=== PATIENT | male | born 1995 | race Hispanic/Latino ===

== ENCOUNTER 2019-04-07 10:41 | Emergency (ER) | payer SELFPAY ==
[2019-04-07 12:16] VITALS: BP 112/72
--- NOTE | 2019-04-07 12:16 | Event Note ---
ED Screening Note ED Screening Note: states yesterday began having cough/cold symptoms states today having N/V/D unable to tolerate PO intake no fever +sick contact PMHx asthma, ADHD no allergies to meds non smoker non drinker no drug use This initial assessment/diagnostic orders/clinical plan/treatment(s) is/are subject to change based on patients health status, clinical progression and re- assessment by fellow clinical providers in the ED. Further treatment and workup at subsequent clinical providers discretion. Patient/guardian urged not to elope from the ED as their condition may be serious if not clinically assessed and managed. Initial orders include: labs
[2019-04-07 14:13] LABS: Basophils % (Auto) 0.5 % (0.0-1.8); Eosinophils % (Auto) 0.1 % (0.0-4.3); Hematocrit 46.3 % (35.5-45.6); Hemoglobin 15.6 gm/dl (11.8-15.2); Lymphocytes # (Auto) 0.6 K/mm3 (1.2-5.4); Mean Corpuscular HGB Conc 34 % (32-34); Mean Corpuscular Volume 86 fl (84-94); Monocytes # (Auto) 0.3 K/mm3 (0.0-0.8); Monocytes % (Auto) 3.6 % (0.0-7.3); Platelet Count 277 K/mm3 (140-440); Red Blood Count 5.38 M/mm3 (3.65-5.03); Red Cell Distribution Width 12.8 % (13.2-15.2)
[2019-04-07 14:37] LABS: Alanine Aminotransferase 25 units/L (7-56); Albumin 4.8 g/dL (3.9-5); BUN/Creatinine Ratio 10; Blood Urea Nitrogen 7 mg/dL (9-20); Calcium 9.8 mg/dL (8.4-10.2); Hemolysis Index 16
[2019-04-07] MEDS ORDERED: ONDANSETRON 4 MG ODT TAB PO ONE (15:21)
[2019-04-07] MEDS ORDERED: SODIUM CHLORIDE 0.9% 1000 ML 1,000 ML IV ONE (15:22)
[2019-04-07] MEDS ORDERED: ONDANSETRON 4 MG/2 ML INJ IV ONE (15:23)
--- NOTE | 2019-04-07 15:25 | Emergency Department Report ---
Vomiting/Diarrhea - HPI Chief Complaint: Nausea/Vomiting/Diarrhea Stated Complaint: VOMITING Time Seen by Provider: 04/07/19 12:15 Duration: 1 Day Severity: moderate Nausea/Vomiting Severity: Moderate Diarrhea Severity: Mild Pain Severity: None Symptoms: Yes Watery Diarrhea, Yes Able to Tolerate Fluids, Yes Family w/ Si milar Symptoms, No Bloody diarrhea, No Fever, No Recent Unusual Foods, No Recent Untreated Water, No Recent use of Antibiotics, No Contacts w/ Similar Symptoms, No Rash, No Hematuria, No Recent URI Symptoms Other History: This is a 23-year-old male who presents to the emergency room with nausea, vomiting, and diarrhea last night. Past medical history of asthma and ADHD. Patient reports symptoms started out as a cough and congestion on yesterday. States everyone in his home have similar symptoms. Taking cold and flu medication with minimal improvement in symptoms. ED Review of Systems ROS: Stated complaint: VOMITING Other details as noted in HPI Constitutional: denies: chills, fever ENT: congestion. denies: ear pain, throat pain Respiratory: cough. denies: shortness of breath, wheezing Cardiovascular: denies: chest pain, palpitations Gastrointestinal: nausea, vomiting, diarrhea. denies: abdominal pain, hematemesis, melena, hematochezia Genitourinary: as per HPI Musculoskeletal: denies: back pain, joint swelling, arthralgia Skin: denies: rash, lesions Neurological: denies: headache, weakness, paresthesias Psychiatric: denies: anxiety, depression ED Past Medical Hx - Past Medical History Hx Asthma: Yes - Surgical History Past Surgical History?: No - Social History Smoking Status: Never Smoker Substance Use Type: None - Medications Home Medications: Home Medications Medication Instructions Recorded Confirmed Last Taken Type Loperamide HCl [Imodium A-D] 2 mg PO DAILY PRN #14 capsule 04/07/19 Unknown Rx Ondansetron [Zofran Odt] 4 mg PO Q8HR PRN #15 tab.rapdis 04/07/19 Unknown Rx Vomiting Diarrhea Exam - Exam General: Vital signs noted. No distress. Alert and acting appropriately. HEENT: Yes Pharyngeal Erythema (erythematous posterior pharynx, uvula midline), Yes Moist Mucous Membranes, Yes Rhinorrhea (turbinates congested with clear discharge), No Pharyngeal Exudates, No Conjuctival Injection, No Frontal Tenderness, No Maxillary Tenderness Neck: No Adenopathy, No Rigidity Lungs: Yes Clear Lung Sounds, Yes Good Air Exchange, No Wheezes, No Stridor, No Cough, No Nasal Flaring, No Retractions, No Use of Accessory Muscles Heart exam: Regular: Yes, Murmur: No, Tachycardia: No Abdomen: Tenderness: No, Peritoneal Signs: No, Distention: No, Hyperactive Bowel sounds: No Skin exam: Rash: No, Edema: No, Normal turgor: Yes Neurologic: Alert and oriented, no deficits. Musculoskeletal: Unremarkable. ED Course Vital Signs 04/07/19 12:06 Temperature 98.7 F Pulse Rate 116 H Respiratory 20 Rate Blood Pressure 112/72 O2 Sat by Pulse 99 Oximetry Vital Signs 04/07/19 04/07/19 12:06 17:13 Temperature 98.7 F Pulse Rate 116 H 97 H Respiratory 20 18 Rate Blood Pressure 112/72 O2 Sat by Pulse 99 97 Oximetry ED Medical Decision Making - Lab Data Result diagrams: 04/07/19 13:58 04/07/19 13:58 Lab Results 04/07/19 04/07/19 Range/Units 13:58 13:58 WBC 8.0 (4.5-11.0) K/mm3 RBC 5.38 H (3.65-5.03) M/mm3 Hgb 15.6 H (11.8-15.2) gm/dl Hct 46.3 H (35.5-45.6) % MCV 86 (84-94) fl MCH 29 (28-32) pg MCHC 34 (32-34) % RDW 12.8 L (13.2-15.2) % Plt Count 277 (140-440) K/mm3 Lymph % (Auto) 8.0 L (13.4-35.0) % [facility] % (Auto) 3.6 (0.0-7.3) % Eos % (Auto) 0.1 (0.0-4.3) % Baso % (Auto) 0.5 (0.0-1.8) % Lymph # 0.6 L (1.2-5.4) K/mm3 [facility] # 0.3 (0.0-0.8) K/mm3 Eos # 0.0 (0.0-0.4) K/mm3 Baso # 0.0 (0.0-0.1) K/mm3 Seg Neutrophils % 87.8 H (40.0-70.0) % Seg Neutrophils # 7.0 (1.8-7.7) K/mm3 Sodium 138 (137-145) mmol/L Potassium 4.1 (3.6-5.0) mmol/L Chloride 99.0 (98-107) mmol/L Carbon Dioxide 24 (22-30) mmol/L Anion Gap 19 mmol/L BUN 7 L (9-20) mg/dL Creatinine 0.7 L (0.8-1.5) mg/dL Estimated GFR > 60 ml/min BUN/Creatinine Ratio 10 % Glucose 100 (75-100) mg/dL Calcium 9.8 (8.4-10.2) mg/dL Total Bilirubin 1.00 (0.1-1.2) mg/dL AST 22 (5-40) units/L ALT 25 (7-56) units/L Alkaline Phosphatase 67 (35-129) units/L Total Protein 7.9 (6.3-8.2) g/dL Albumin 4.8 (3.9-5) g/dL Albumin/Globulin Ratio 1.5 % - Medical Decision Making Patient is overall well appearing and in no acute distress. VSS. Labs obtained. Given History and Exam there does not appear to be an emergent cause of the symptoms such as small bowel obstruction, coronary syndrome, bowel ischemia, DKA, pancreatitis, appendicitis, other acute abdomen or other emergent problem. Given 1 liter bolus of normal saline and anti-emetics. After treatment, the patient is feeling much better, tolerating PO fluids, and shows no signs of dehydration. Start Zofran and Imodium. Discharge home with prompt primary care physician follow up in the next 48 hours. Strict return precautions discussed. Critical care attestation.: If time is entered above; I have spent that time in minutes in the direct care of this critically ill patient, excluding procedure time. ED Disposition Clinical Impression: Nausea, vomiting and diarrhea, Gastroenteritis Disposition: DC-01 TO HOME OR SELFCARE Is pt being admited?: No Condition: Stable Instructions: Acute Nausea and Vomiting (ED) Additional Instructions: Frequent hand washing is important to reduce spread. Prompt disinfection of contaminated surfaces with household chlorine bleach- based development technician and washing of soiled clothing and bedding should be advised. If food or water is thought to be contaminated, it should be avoided. Increase fluid intake. Drinks high in sugars such as carbonated soft drinks, fruit juice, and highly sugared liquids should be avoided. Prescriptions: Loperamide HCl [Imodium A-D] 2 mg PO DAILY PRN #14 capsule PRN Reason: Diarrhea Ondansetron [Zofran Odt] 4 mg PO Q8HR PRN #15 tab.rapdis PRN Reason: Nausea And Vomiting Referrals: LYNDA ORNELAS MD [Staff Physician] - 3-5 Days HAI MCNEILL MD [Staff Physician] - 3-5 Days Forms: Work/School Release Form(ED) Time of Disposition: 15:31
== END 2019-04-07 17:13 | disposition home or self-care (01) ==
LOC: ED 10:41
DX: K52.9 Noninfective gastroenteritis and colitis, unspecified (principal); J45.909 Unspecified asthma, uncomplicated; F90.9 Attention-deficit hyperactivity disorder, unspecified type; Z79.899 Other long term (current) drug therapy
CPT/HCPCS: 36415; 80053; 85025; 96361; 96374; 99283; J2405; J7030

== ENCOUNTER 2020-01-03 22:31 | Emergency (ER) | payer SELFPAY ==
[2020-01-03 23:20] VITALS: BP 120/77
[2020-01-04] MEDS ORDERED: LIDOCAINE-MPF (1%) 10 MG/1 ML VIAL 5 ML INFILTRATI ONE (04:46)
[2020-01-04] MEDS ORDERED: IBUPROFEN 600 MG TAB PO ONE (04:46)
--- NOTE | 2020-01-04 06:39 | Emergency Department Report ---
ED Laceration HPI - HPI Chief Complaint: Laceration/Recheck/Suture Stated Complaint: LACERATION TO MIDDLE FINGER LEFT HAND Occurred When: Today Location: Upper Extremity (left middle finger laceration) Severity: severe Tetanus Status: Up to Date Laceration Symptoms: Yes Pain (distal left middle finger due to bleeding laceration), No Foreign Body Sensation, No Numbness, No Weakness Other History: Patient is a 24-year-old white male with past medical history of asthma who presents to the ED with complaint of acute onset persistent painful bleeding distal left middle finger laceration after he accidentally 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 Patient states that the bleeding is well controlled at this time of the pain is persistent and worse. Patient states that he is up-to-date with all his tetanus vaccinations. Patient denies numbness and tingling or weakness of left middle finger left hand, fever, chills, nausea, vomiting, syncope or dizziness. ED Review of Systems ROS: Stated complaint: LACERATION TO MIDDLE FINGER LEFT HAND Other details as noted in HPI Constitutional: denies: chills, fever Eyes: denies: eye pain, eye discharge, vision change ENT: denies: ear pain, throat pain Respiratory: denies: cough, shortness of breath, wheezing Cardiovascular: denies: chest pain, palpitations Endocrine: no symptoms reported Gastrointestinal: denies: abdominal pain, nausea, diarrhea Genitourinary: denies: urgency, dysuria Musculoskeletal: arthralgia (Distal left middle finger pain with bleeding laceration). denies: back pain, joint swelling Skin: other (Bleeding distal left middle finger laceration with pain). denies: rash, lesions Neurological: denies: headache, weakness, paresthesias Psychiatric: denies: anxiety, depression Hematological/Lymphatic: denies: easy bleeding, easy bruising ED Past Medical Hx - Past Medical History Previous Medical History?: Yes Hx Asthma: Yes Additional medical history: ADHD - Social History Smoking Status: Never Smoker Substance Use Type: Alcohol - Medications Home Medications: Home Medications Medication Instructions Recorded Confirmed Last Taken Type Loperamide HCl [Imodium A-D] 2 mg PO DAILY PRN #14 capsule 04/07/19 Unknown Rx Ondansetron [Zofran Odt] 4 mg PO Q8HR PRN #15 tab.rapdis 04/07/19 Unknown Rx Famotidine [Pepcid] 40 mg PO DAILY #14 tablet 10/07/19 Unknown Rx Mometasone Furoate [Elocon] 1 applicatio TP QDAY #45 cream..g. 10/07/19 Unknown Rx hydrOXYzine HCL [Atarax] 25 mg PO Q6HR PRN #20 tablet 10/07/19 Unknown Rx predniSONE [Deltasone] 50 mg PO QDAY #5 tab 10/07/19 Unknown Rx Ibuprofen [Motrin] 600 mg PO Q8H PRN #24 tablet 01/04/20 Unknown Rx cephALEXin [Keflex] 500 mg PO Q12HR #20 cap 01/04/20 Unknown Rx Laceration Physical Exam - Exam General: Vital signs noted. No distress. Alert and acting appropriately. Wound Length (cm): 2 Laceration Location: Upper Extremity (Palpable moderate tenderness on distal left middle finger due to a 2 cm laceration) Full Body Front + Back: 1 - Distal left middle finger 2 cm laceration Laceration Exam: Yes Normal Distal CMS, No Foreign Body, No Exposed Tendon, Vessel, or Nerve, No Tendon Injury ED Course Vital Signs 01/03/20 23:15 Temperature 98.7 F Pulse Rate 97 H Respiratory 16 Rate Blood Pressure 120/77 O2 Sat by Pulse 94 Oximetry - Laceration /Wound Repair Left Distal Finger Wound Location: upper extremity (Distal left middle finger laceration) Wound Length (cm): 2 Wound's Depth, Shape: linear Wound Explored: contaminated Irrigated w/ Saline (ccs): 100 Betadine Prep?: Yes Anesthesia: 1% Lidocaine Volume Anesthetic (ccs): 4 Wound Debrided: extensive Wound Repaired With: sutures Suture Size/Type: 4:0, proline Number of Sutures: 6 Layer Closure?: No Sterile Dressing Applied?: Yes Progress: The distal left middle finger laceration was cleaned thoroughly and 1% lidocaine solution used for local anesthesia. When anesthesia was fully achieved, the distal left middle finger laceration was sutured per protocol. Patient tolerated the procedure well. The wound was then dressed appropriately and the patient was discharged home on pain medication and prophylactic antibiotics. Patient was advised return to the ED immediately if symptoms get worse, otherwise follow-up with his primary care physician in 7 to 10 days for reevaluation. Patient was advised to return to the ED or to his primary care physician in 12 to 14 days for suture removal. 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 Patient states that the bleeding is well controlled at this time of the pain is persistent and worse. Patient states that he is up-to-date with all his tetanus vaccinations. In the ED, patient is alert and oriented x3 and is not in distress. Patient was treated for pain in the ED and the distal left middle finger laceration was sutured per protocol. Patient tolerated the procedure well. The wound was then dressed appropriately and the patient was discharged home on pain medication and prophylactic antibiotics. Patient was advised to return to the ED immediately if symptoms get worse, otherwise follow-up with his primary care physician in 7 to 10 days for reevaluation. Patient was advised to return to the ED or to his primary care physician for suture removal in 12 to 14 days. - Differential Diagnosis Laceration; puncture wound; abrasion; sprain finger Critical care attestation.: If time is entered above; I have spent that time in minutes in the direct care of this critically ill patient, excluding procedure time. ED Disposition Clinical Impression: Laceration of left middle finger w/o foreign body w/o damage to nail Qualifiers: Encounter type: initial encounter Qualified Code(s): S61.213A - Laceration without foreign body of left middle finger without damage to nail, initial encou nter Disposition: DC-01 TO HOME OR SELFCARE Is pt being admited?: No Does the pt Need Aspirin: No Condition: Stable Instructions: Suture Care (ED), Finger Laceration (ED) Additional Instructions: Take medication with food, drink plenty of fluids and follow-up with your primary care physician in 5 to 7 days for reevaluation. Return to the ED imm ediately if symptoms get worse. Otherwise return to the ED or to your primary care physician in 12 to 14 days for suture removal. Prescriptions: cephALEXin [Keflex] 500 mg PO Q12HR #20 cap Ibuprofen [Motrin] 600 mg PO Q8H PRN #24 tablet PRN Reason: Pain Referrals: PRIMARY CARE,MD [Primary Care Provider] - 3-5 Days Forms: Work/School Release Form(ED) Time of Disposition: 06:42 Print Language: AZERI
== END 2020-01-04 06:45 | disposition home or self-care (01) ==
LOC: ED 22:31
DX: S61.213A Laceration without foreign body of left middle finger without damage to nail, initial encounter (principal); J45.909 Unspecified asthma, uncomplicated; Z79.899 Other long term (current) drug therapy; Z91.018 Allergy to other foods; W26.0XXA Contact with knife, initial encounter; Y93.89 Activity, other specified; Y92.89 Other specified places as the place of occurrence of the external cause; Y99.0 Civilian activity done for income or pay
CPT/HCPCS: 99282

== ENCOUNTER 2020-06-19 17:19 | Emergency (ER) | payer OTHER ==
[2020-06-19 17:37] VITALS: BP 124/83
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
--- NOTE | 2020-06-19 18:39 | XRay Report ---
RIGHT HAND 3 VIEW(S) INDICATION / CLINICAL INFORMATION: snuff box pain COMPARISON: None available. FINDINGS: BONES / JOINT(S): No acute fracture or subluxation. No significant arthritis. Benign-appearing bone i sland in the capitate. SOFT TISSUES: No significant abnormality. ADDITIONAL FINDINGS: None. Signer Name: Gene Gregory MD Signed: 06/19/2020 6:35 PM Workstation Name: [id number]
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
== END 2020-06-19 19:31 | disposition home or self-care (01) ==
LOC: ED 17:19
DX: S20.20XA Contusion of thorax, unspecified, initial encounter (principal); J45.909 Unspecified asthma, uncomplicated; Z91.048 Other nonmedicinal substance allergy status; Z79.899 Other long term (current) drug therapy; V49.59XA Passenger injured in collision with other motor vehicles in traffic accident, initial encounter; Y92.410 Unspecified street and highway as the place of occurrence of the external cause; Y93.89 Activity, other specified; Y99.8 Other external cause status

== ENCOUNTER 2021-03-25 15:39 | Emergency (ER) | payer SELFPAY ==
[2021-03-25 19:45] VITALS: BP 105/71
--- NOTE | 2021-03-25 20:41 | Emergency Department Report ---
- General Chief Complaint: Upper Respiratory Infection Stated Complaint: TROUBLE BREATHING, COUGHING UP FLEM Source: patient Mode of arrival: Ambulatory Limitations: No Limitations - History of Present Illness MD Complaint: cough, sore throat, rhinorrhea, nasal congestion, sinus pain -: Sudden, days(s) (3) Severity: moderate Severity scale (0 -10): 6 Quality: dull, aching Consistency: constant Improves With: nothing Worsens With: nothing Associated Symptoms: denies other symptoms, rhinorrhea, nasal congestion, sore throat, cough. denies: fever, chills, myalgias, diaphoresis, headache, chest pain, shortness of breath, abdominal pain, nausea, vomiting, diarrhea, dysuria, rash, confusion, epistaxis, hoarseness, ear pain Treatments Prior to Arrival: none - Related Data Previous Rx's Medication Instructions Recorded Last Taken Type Loperamide HCl [Imodium A-D] 2 mg PO DAILY PRN #14 capsule 04/07/19 Unknown Rx Ondansetron [Zofran Odt] 4 mg PO Q8HR PRN #15 tab.rapdis 04/07/19 Unknown Rx Famotidine [Pepcid] 40 mg PO DAILY #14 tablet 10/07/19 Unknown Rx Mometasone Furoate [Elocon] 1 applicatio TP QDAY #45 cream..g. 10/07/19 Unknown Rx hydrOXYzine HCL [Atarax] 25 mg PO Q6HR PRN #20 tablet 10/07/19 Unknown Rx predniSONE [Deltasone] 50 mg PO QDAY #5 tab 10/07/19 Unknown Rx Ibuprofen [Motrin] 600 mg PO Q8H PRN #24 tablet 01/04/20 Unknown Rx cephALEXin [Keflex] 500 mg PO Q12HR #20 cap 01/04/20 Unknown Rx Azithromycin [Zithromax Z-HUYEN] 250 mg PO DAILY #6 tablet 03/25/21 Unknown Rx Benzonatate [Tessalon Perles] 100 mg PO Q8HR #30 capsule 03/25/21 Unknown Rx Cetirizine HCl [Zyrtec 10mg tab] 10 mg PO DAILY #30 tablet 03/25/21 Unknown Rx Ibuprofen [Motrin] 600 mg PO Q8H PRN #30 tablet 03/25/21 Unknown Rx Allergies Allergy/AdvReac Type Severity Reaction Status Date / Time pecan nut Allergy Itching Verified 10/06/19 23:59 ED Review of Systems ROS: Stated complaint: TROUBLE BREATHING, COUGHING UP FLEM Other details as noted in HPI ED Past Medical Hx - Past Medical History Previous Medical History?: Yes Hx Asthma: Yes Additional medical history: ADHD - Surgical History Past Surgical History?: No - Social History Smoking Status: Never Smoker Substance Use Type: Alcohol - Medications Home Medications: Home Medications Medication Instructions Recorded Confirmed Last Taken Type Loperamide HCl [Imodium A-D] 2 mg PO DAILY PRN #14 capsule 04/07/19 Unknown Rx Ondansetron [Zofran Odt] 4 mg PO Q8HR PRN #15 tab.rapdis 04/07/19 Unknown Rx Famotidine [Pepcid] 40 mg PO DAILY #14 tablet 10/07/19 Unknown Rx Mometasone Furoate [Elocon] 1 applicatio TP QDAY #45 cream..g. 10/07/19 Unknown Rx hydrOXYzine HCL [Atarax] 25 mg PO Q6HR PRN #20 tablet 10/07/19 Unknown Rx predniSONE [Deltasone] 50 mg PO QDAY #5 tab 10/07/19 Unknown Rx Ibuprofen [Motrin] 600 mg PO Q8H PRN #24 tablet 01/04/20 Unknown Rx cephALEXin [Keflex] 500 mg PO Q12HR #20 cap 01/04/20 Unknown Rx Azithromycin [Zithromax Z-HUYEN] 250 mg PO DAILY #6 tablet 03/25/21 Unknown Rx Benzonatate [Tessalon Perles] 100 mg PO Q8HR #30 capsule 03/25/21 Unknown Rx Cetirizine HCl [Zyrtec 10mg tab] 10 mg PO DAILY #30 tablet 03/25/21 Unknown Rx Ibuprofen [Motrin] 600 mg PO Q8H PRN #30 tablet 03/25/21 Unknown Rx ED Physical Exam - General Limitations: No Limitations ED Course Vital Signs 03/25/21 19:45 Temperature 98.7 F Pulse Rate 87 Respiratory 18 Rate Blood Pressure 105/71 [Right] O2 Sat by Pulse 98 Oximetry Critical care attestation.: If time is entered above; I have spent that time in minutes in the direct care of this critically ill patient, excluding procedure time. ED Disposition Clinical Impression: Acute upper respiratory infection, Acute bacterial pharyngitis Acute bronchitis Qualifiers: Bronchitis organism: other organism Qualified Code(s): J20.8 - Acute bronchitis due to other specified organisms Disposition: 01 HOME / SELF CARE / HOMELESS Is pt being admited?: No Does the pt Need Aspirin: No Condition: Stable Instructions: Acute Bronchitis (ED), Upper Respiratory Infection, Adult, [id number], Acute Bronchitis, Adult, [id number], Sore Throat, [id number] Additional Instructions: Take medication with food, drink plenty of fluids and follow-up with your primary care physician in 5 to 7 days for reevaluation. Return to the ED immediately if symptoms get worse Prescriptions: Ibuprofen [Motrin] 600 mg PO Q8H PRN #30 tablet PRN Reason: Pain Benzonatate [Tessalon Perles] 100 mg PO Q8HR #30 capsule Azithromycin [Zithromax Z-HUYEN] 250 mg PO DAILY #6 tablet Cetirizine HCl [Zyrtec 10mg tab] 10 mg PO DAILY #30 tablet Referrals: [facility] [Provider Group] - 7-10 days Forms: Work/School Release Form(ED) Time of Disposition: 20:38 Print Language: BRITISH
== END 2021-03-25 21:33 | disposition home or self-care (01) ==
LOC: ED 15:39
DX: J06.9 Acute upper respiratory infection, unspecified (principal); J02.9 Acute pharyngitis, unspecified; J20.9 Acute bronchitis, unspecified; J45.909 Unspecified asthma, uncomplicated; F90.9 Attention-deficit hyperactivity disorder, unspecified type; Z91.010 Allergy to peanuts
CPT/HCPCS: 99282